=== PATIENT | male | born 1990 | race Hispanic/Latino ===

== ENCOUNTER 2020-08-01 17:51 | Emergency (ER) | payer SELFPAY ==
[~2020-08-01] VITALS: Ht 188 cm; Wt 105.0 kg
[2020-08-01 19:00] LABS: HEMATOCRIT 46.1 % (39.0-50.0); HEMOGLOBIN 15.2 g/dl (14.0-18.0); IMMATURE GRANULOCYTES 0.8 % (0.0-5.0); MEAN CORPUSCULAR HGB 29.7 pG CALC (26.0-32.0); NEUT# 6.05 thou/uL (1.82-7.42); RED BLOOD COUNT 5.12 mill/uL (4.70-6.10); RED CELL DISTRI WIDTH 12.3 % (11.5-15.5)
[2020-08-01 19:35] LABS: ALBUMIN 4.5 g/dL (3.2-5.0); ALKALINE PHOSPHATASE 96 u/l (38-126); ANION GAP 13 (6-22 (CALC)); BILIRUBIN, TOTAL 0.5 mg/dL (0.0-1.4); BUN 14 mg/dL (9-20); BUN/CREATININE RATIO 16 (12-20 (CALC)); CARBON DIOXIDE 25 mmol/l (22-30); CHLORIDE 101 mmol/l (95-108); CREATININE 0.9 mg/dL (0.7-1.3); GFR > 60 ML/MIN (>=60 (CALC)); GFR FOR AFR.AMER. > 60 ML/MIN (>=60 (CALC)); POTASSIUM 3.7 mmol/l (3.5-5.1); SGOT/AST 35 u/l (17-59); SODIUM 135 mmol/l (137-146); TOTAL PROTEIN 8.2 g/dL (6.3-8.2)
[2020-08-01] MEDS ORDERED: MOTRIN800 MG PO (20:25)
[2020-08-01 20:55] VITALS: BP 130/80
== END 2020-08-01 20:55 | disposition home or self-care (01) | DRG 563 ==
LOC: ED 17:51
PROVIDERS: Family Medicine
DX: S46.912A Strain of unspecified muscle, fascia and tendon at shoulder and upper arm level, left arm, initial encounter (principal); R09.1 Pleurisy; R06.02 Shortness of breath; X50.3XXA Overexertion from repetitive movements, initial encounter; Y93.H2 Activity, gardening and landscaping; Y99.0 Civilian activity done for income or pay; Z20.822 Contact with and (suspected) exposure to COVID-19

== ENCOUNTER 2020-10-29 | Emergency (ER) | payer SELFPAY ==
[~2020-10-29] MED LIST: MOTRIN800 MG PO
[2020-10-29 21:19] LABS: HEMATOCRIT 44.6 % (39.0-50.0); HEMOGLOBIN 14.9 g/dl (14.0-18.0); IMMATURE GRANULOCYTES 0.2 % (0.0-5.0); MEAN CELL VOLUME 89.2 fL CALC (80.0-100.0); MEAN CORPUSCULAR HGB 29.8 pG CALC (26.0-32.0); MEAN CORPUSCULAR HGB CONC 33.4 g/dL CAL (32.0-36.0); NEUT# 6.73 thou/uL (1.82-7.42); RED CELL DISTRI WIDTH 12.6 % (11.5-15.5)
[2020-10-29 21:27] LABS: URINE BILIRUBIN - DIPSTICK NEGATIVE (NEGATIVE); URINE BLOOD DIPSTICK SMALL (NEGATIVE); URINE COLOR YELLOW; URINE GLUCOSE - DIPSTICK NEGATIVE (NEGATIVE); URINE KETONE NEGATIVE (NEGATIVE); URINE LEUK ESTERASE NEGATIVE (NEGATIVE); URINE PH 5.5 (4.5-8.0); URINE PROTEIN - DIPSTICK NEGATIVE (NEG-TRACE); URINE SPECIFIC GRAVITY >=1.030; URINE UROBILINOGEN - DIPSTICK 0.2 E.U./dL (0.2)
[2020-10-29 21:32] LABS: URINE NITRITE - DIPSTICK NEGATIVE (Negative)
[2020-10-29 21:33] LABS: ALBUMIN 4.6 g/dL (3.2-5.0); ALKALINE PHOSPHATASE 98 u/l (38-126); AMYLASE 64 u/l (30-110); ANION GAP 13 (6-22 (CALC)); BILIRUBIN, TOTAL 0.6 mg/dL (0.0-1.4); BUN 15 mg/dL (9-20); BUN/CREATININE RATIO 14 (12-20 (CALC)); CARBON DIOXIDE 25 mmol/l (22-30); CHLORIDE 102 mmol/l (95-108); CREATININE 1.1 mg/dL (0.7-1.3); GFR > 60 ML/MIN (>=60 (CALC)); GFR FOR AFR.AMER. > 60 ML/MIN (>=60 (CALC)); LIPASE 46 u/l (23-300); POTASSIUM 4.1 mmol/l (3.5-5.1); SGOT/AST 21 u/l (17-59); SODIUM 136 mmol/l (137-146); TOTAL PROTEIN 8.2 g/dL (6.3-8.2)
[2020-10-29 21:37] LABS: URINE RBC 0-2 RBC/hpf (0-5); URINE SQUAMOUS EPITHELIAL CELL FEW EPI/hpf (0-FEW)
[2020-10-29] MEDS ORDERED: MIRALAX17 GM PO (22:54)
[2020-10-29] MEDS ORDERED: MAGNESIUM296 ML/BTL PO (22:54)
== END 2020-10-29 22:59 | disposition home or self-care (01) | DRG 392 ==
PROVIDERS: Family Medicine
DX: K59.00 Constipation, unspecified (principal); K21.9 Gastro-esophageal reflux disease without esophagitis
CPT/HCPCS: Q9967

== ENCOUNTER 2021-02-28 21:03 | Emergency (ER) | payer SELFPAY ==
[~2021-02-28] VITALS: Ht 188 cm; Wt 117.0 kg
[~2021-02-28 21:03] MED LIST changes: +MAGNESIUM296 ML/BTL PO; +MIRALAX17 GM PO
[2021-02-28 21:45] VITALS: BP 152/101
[2021-02-28] MEDS ORDERED: CORTISPORIN OTI10 M2 AD (22:00)
== END 2021-02-28 23:40 | disposition home or self-care (01) | DRG 153 ==
LOC: ED 21:03
DX: H66.91 Otitis media, unspecified, right ear (principal); K21.9 Gastro-esophageal reflux disease without esophagitis

== ENCOUNTER 2021-11-25 21:25 | Emergency (ER) | payer SELFPAY ==
[~2021-11-25] VITALS: Ht 188 cm; Wt 90.0 kg
[~2021-11-25 21:25] MED LIST changes: +CORTISPORIN OTI10 M2 AD
[2021-11-25 22:20] VITALS: BP 152/96
[2021-11-25] MEDS ORDERED: KEFLEX500 MG PO (22:26)
[2021-11-25 22:30] VITALS: BP 130/84
[2021-11-25 22:32] VITALS: BP 130/84
== END 2021-11-25 22:36 | disposition home or self-care (01) | DRG 603 ==
LOC: ED 21:25
DX: L03.114 Cellulitis of left upper limb (principal)